=== PATIENT | male | born 1995 | race Asian ===

== ENCOUNTER 2022-12-05 13:29 | Inpatient (IN) | payer OTHER ==
[2022-12-05] MEDS: Sodium Chloride 0.9% 10 ML Syringe FLUSH PRN (14:43)
[2022-12-05 14:49] LABS: PROTHROMBIN TIME 10.1 SEC (9.0-12.0); PTT,PARTIAL THROMBOPLSTIN TIME 22.3 SEC (22.0-34.0)
[2022-12-05 14:52] LABS: A/G RATIO 1.3; ALANINE AMINOTRANSFERASE,ALT 306 U/L (16-63); ALBUMIN 4.5 g/dL (3.4-5.0); ALKALINE PHOSPHATASE 95 U/L (46-116); AMYLASE 81 U/L (25-115); ANION GAP 21.1 mEq/L (7-13); ASPARTATE AMNIOTRANSFERASE,AST 296 U/L (15-37); BILIRUBIN TOTAL 1.7 mg/dL (0.2-1.0); BLOOD UREA NITROGEN,BUN 9 mg/dL (7-18); BUN/CREATININE RATIO 9.5 (No establ ref range); CALCIUM 9.7 mg/dL (8.5-10.1); CARBON DIOXIDE,CO2 22 mmol/L (21-32); CHLORIDE,CL 101 mmol/L (98-107); CREATININE 0.95 mg/dL (0.70-1.30); ESTIMATED GFR 112 mL/min (>=60); GLUCOSE RANDOM 134 mg/dL (70-99); LIPASE 290 U/L (73-393); MAGNESIUM 1.6 mg/dL (1.8-2.4); POTASSIUM,K 4.1 mmol/L (3.5-5.1); SODIUM,NA 140 mmol/L (136-145)
[2022-12-05 14:53] LABS: C-REACTIVE PROTEIN < 0.2 mg/dL (0.0-0.9); ETHANOL BLOOD MEDICAL < 3 mg/dL (0)
[2022-12-05 14:54] LABS: BASOPHILS PERCENT AUTO 0.7 % (0.0-1.0); HEMATOCRIT 48.3 % (40.0-54.0); HEMOGLOBIN 16.1 g/dL (14.0-18.0); LYMPHOCYTES PERCENT AUTO 2.8 % (20.5-50.1); MEAN CORPUSCULAR HEMOGLOBIN 35.2 pg (27.0-34.0); MEAN CORPUSCULAR HGB CONC 33.3 g/dL (33.0-35.0); MEAN CORPUSCULAR VOLUME 105.5 fL (80-100); MONOCYTES PERCENT AUTO 5.8 % (2-8); NEUTROPHILS PERCENT AUTO 90.7 % (42.2-75.2); PLATELET COUNT,PLT 75 10^3/uL (150-450); RED BLOOD CELL COUNT 4.58 10^6/uL (4.6-6.2); WHITE BLOOD CELL COUNT,WBC 7.6 10^3/uL (5.0-10.0)
[2022-12-05 14:57] LABS: APPEARANCE,URINE CLOUDY (CLEAR); BILIRUBIN,URINE SMALL (NEGATIVE); COLOR,URINE AMBER (YELLOW); GLUCOSE,URINE NEGATIVE (NEGATIVE); KETONES,URINE 15 (NEGATIVE); LEUKOCYTE ESTERASE,URINE NEGATIVE (NEGATIVE); NITRITE,URINE POSITIVE (NEGATIVE); OCCULT BLOOD,URINE TRACE-INTACT (NEGATIVE); PROTEIN,URINE >=300 (NEGATIVE)
[2022-12-05 14:59] LABS: LACTIC ACID 5.4 mmol/L (0.4-2.0)
[2022-12-05 15:07] LABS: AMPHETAMINES,URINE NEGATIVE (NEGATIVE); BARBITURATES,URINE NEGATIVE (NEGATIVE); BENZODIAZEPINE,URINE NEGATIVE (NEGATIVE); MDMA (ECSTASY), URINE NEGATIVE (NEGATIVE); METHADONE,URINE NEGATIVE (NEGATIVE); METHAMPHETAMINES,URINE NEGATIVE (NEGATIVE); OPIATES,URINE NEGATIVE (NEGATIVE); OXYCODONE,URINE NEGATIVE (NEGATIVE); PHENCYCLIDINE,URINE NEGATIVE (NEGATIVE); TCA,URINE NEGATIVE (NEGATIVE)
[2022-12-05] MEDS ORDERED: Ondansetron 4 MG/2 ML SDV IVPUSH ONE (15:16)
[2022-12-05] MEDS ORDERED: Sodium Chloride 0.9% 1,000 ML IV ONE (15:16)
[2022-12-05] MEDS ORDERED: Lactulose Soln 10 GM/15 ML 30 ML UD Cup PO ONE (15:18)
[2022-12-05] MEDS ORDERED: Iopamidol 612 MG/ML 100 ML Bottle IVPUSH ONE (15:19)
[2022-12-05] MEDS ORDERED: LORazepam 2 MG/ML SDV IVPUSH ONE (15:28)
[2022-12-05 16:03] LABS: AMORPHOUS SEDIMENT,URINE FEW /HPF (NOT SEEN); BACTERIA,URINE OCCASIONAL /HPF (0-FEW/HPF); EPITHELIAL CELLS,URINE NOT SEEN /HPF (NOT SEEN); MUCUS,URINE MODERATE /LPF (NOT SEEN); WBC,URINE 0-5 /HPF (0-5/HPF)
[2022-12-05] MEDS ORDERED: MVI, Adult with Vitamin K 10 ML, Folic Acid 1 MG, Thiamine 100 MG in Lactated Ringers 1... IV ONE ×4 (16:43)
[2022-12-05] MEDS ORDERED: Nitrofurantoin Monohydrate/Macrocrystalline 100 MG Cap PO ONE (16:59)
[2022-12-05] MEDS ORDERED: Ibuprofen 400 MG Tab PO PRN (17:24)
[2022-12-05] MEDS ORDERED: Ketorolac 30 MG/ML SDV IVPUSH PRN (17:24)
[2022-12-05] MEDS ORDERED: Ondansetron 4 MG/2 ML SDV IVPUSH PRN (17:25)
[2022-12-05] MEDS ORDERED: Magnesium Hydroxide 400 MG/5 ML Susp 30 ML Cup PO PRN (17:25)
[2022-12-05] MEDS ORDERED: HYDROmorphone 0.5 MG/0.5 ML Syringe IVPUSH PRN (17:25)
[2022-12-05] MEDS ORDERED: Albuterol/Ipratropium 3.0-0.5 MG/3 ML Neb Soln NEB PRN (17:25)
[2022-12-05] MEDS ORDERED: Thiamine 200 MG/2 ML MDV IVPUSH ONE (17:25)
[2022-12-05] MEDS ORDERED: cloNIDine 0.1 MG Tab PO PRN (17:25)
[2022-12-05] MEDS ORDERED: Polyethylene Glycol 3350 Powder 17 GM Packet PO PRN (17:25)
[2022-12-05] MEDS ORDERED: LORazepam 0.5 MG Tab PO PRN (17:25)
[2022-12-05] MEDS ORDERED: Ziprasidone Mesylate 20 MG Vial IM PRN (17:28)
[2022-12-05] MEDS ORDERED: Magnesium Sulfate/Water 2 GM in Premix Bag 1 BAG IV ONE (17:29)
[2022-12-05] MEDS ORDERED: Sodium Chloride 0.9% 1,000 ML IV SCH (17:30)
[2022-12-05] MEDS: Nicotine 21 MG/24 Hr Patch TRDERM SCH (18:38)
[2022-12-05] MEDS: QUEtiapine 100 MG Tab PO SCH (20:33)
[2022-12-05] MEDS: LORazepam 2 MG/ML SDV IV PRN (23:50)
[2022-12-06] MEDS: LORazepam 2 MG/ML SDV IV PRN ×4 (01:56→15:33)
[2022-12-06] MEDS: Pantoprazole 40 MG Tab.CR PO SCH (06:11)
[2022-12-06 06:41] LABS: HEMOGLOBIN 14.8 g/dL (14.0-18.0); MEAN CORPUSCULAR HEMOGLOBIN 35.5 pg (27.0-34.0); MEAN CORPUSCULAR HGB CONC 32.9 g/dL (33.0-35.0); MEAN CORPUSCULAR VOLUME 107.9 fL (80-100); RED BLOOD CELL COUNT 4.17 10^6/uL (4.6-6.2); WHITE BLOOD CELL COUNT,WBC 4.2 10^3/uL (5.0-10.0)
[2022-12-06 06:54] LABS: A/G RATIO 1.1; ALBUMIN 3.4 g/dL (3.4-5.0); ANION GAP 13.1 mEq/L (7-13); BILIRUBIN TOTAL 1.9 mg/dL (0.2-1.0); BUN/CREATININE RATIO 9.6 (No establ ref range); CALCIUM 8.5 mg/dL (8.5-10.1); CREATININE 0.73 mg/dL (0.70-1.30); EST CRCL DRUG DOSING (CG) 131.05 mL/min; MAGNESIUM 1.9 mg/dL (1.8-2.4); POTASSIUM,K 3.1 mmol/L (3.5-5.1); PROTEIN TOTAL,TP 6.6 g/dL (6.4-8.2)
[2022-12-06] MEDS: Multivitamin Tab PO SCH (08:42)
[2022-12-06] MEDS: Thiamine 100 MG Tab PO SCH (08:42)
[2022-12-06] MEDS: Folic Acid 1 MG Tab PO SCH (08:43)
[2022-12-06] MEDS: Nicotine 21 MG/24 Hr Patch TRDERM SCH (08:52)
[2022-12-06] MEDS: Sodium Chloride 0.9% 10 ML Syringe FLUSH PRN (15:33)
[2022-12-06] MEDS ORDERED: Potassium Chloride 10 MEQ Tab.ER PO ONE (17:47)
[2022-12-06] MEDS: QUEtiapine 100 MG Tab PO SCH (20:54)
[2022-12-07] MEDS: Pantoprazole 40 MG Tab.CR PO SCH (05:22)
[2022-12-07 06:14] LABS: HEMATOCRIT 43.2 % (40.0-54.0); MEAN CORPUSCULAR HEMOGLOBIN 36.4 pg (27.0-34.0); MEAN CORPUSCULAR HGB CONC 34.7 g/dL (33.0-35.0); MEAN CORPUSCULAR VOLUME 104.9 fL (80-100); RED BLOOD CELL COUNT 4.12 10^6/uL (4.6-6.2); WHITE BLOOD CELL COUNT,WBC 4.5 10^3/uL (5.0-10.0)
[2022-12-07 06:33] LABS: A/G RATIO 1.1; ALBUMIN 3.5 g/dL (3.4-5.0); ANION GAP 15.2 mEq/L (7-13); BILIRUBIN TOTAL 1.6 mg/dL (0.2-1.0); BUN/CREATININE RATIO 16.7 (No establ ref range); CALCIUM 9.1 mg/dL (8.5-10.1); CREATININE 0.66 mg/dL (0.70-1.30); EST CRCL DRUG DOSING (CG) 144.95 mL/min; MAGNESIUM 1.9 mg/dL (1.8-2.4); POTASSIUM,K 3.2 mmol/L (3.5-5.1); PROTEIN TOTAL,TP 6.8 g/dL (6.4-8.2)
[2022-12-07] MEDS: Nicotine 21 MG/24 Hr Patch TRDERM SCH (08:11)
[2022-12-07] MEDS: Folic Acid 1 MG Tab PO SCH (08:12)
[2022-12-07] MEDS: Multivitamin Tab PO SCH (08:12)
[2022-12-07] MEDS: Thiamine 100 MG Tab PO SCH (08:13)
== END 2022-12-07 10:35 | disposition home or self-care (01) | DRG 896 ==
LOC: DL.ED 13:29 → DL.MS 16:47 → DL.ED 17:05
PROVIDERS: ADMIT Internal Medicine; ATTEND Internal Medicine
DX: F10.239 Alcohol dependence with withdrawal, unspecified (principal); K85.20 Alcohol induced acute pancreatitis without necrosis or infection; E87.20 Acidosis, unspecified; F17.210 Nicotine dependence, cigarettes, uncomplicated; F41.9 Anxiety disorder, unspecified; E87.6 Hypokalemia; K70.10 Alcoholic hepatitis without ascites; K29.20 Alcoholic gastritis without bleeding; K76.82 Hepatic encephalopathy; R73.9 Hyperglycemia, unspecified; E86.0 Dehydration; E83.42 Hypomagnesemia; Z79.899 Other long term (current) drug therapy
CPT/HCPCS: 36415; 70450; 71045; 72125; 74177; 80053; 80305-QW; 80307; 81001; 82140; 82150; 83605; 83690; 83735; 84145; 84484; 85025; 85027; 85610; 85730; 86140; 87086; 93005; 93010; 96361; 96374; 96375; 99222; 99232; 99238; 99285; 99285-25; A9270-GY; J2060; J2405; J3411; J3475; J3490; J7030; J7120; Q9967

== ENCOUNTER 2023-01-31 10:04 | Inpatient (IN) | payer OTHER ==
[2023-01-31] MEDS ORDERED: Sodium Chloride 0.9% 1,000 ML IV ONE (10:30)
[2023-01-31] MEDS ORDERED: Ondansetron 4 MG/2 ML SDV IVPUSH ONE (10:30)
[2023-01-31 10:37] LABS: BASOPHILS PERCENT AUTO 0.2 % (0.0-1.0); EOSINOPHILS PERCENT AUTO 0.5 % (1.0-3.0); HEMATOCRIT 53.1 % (40.0-54.0); HEMOGLOBIN 18.1 g/dL (14.0-18.0); LYMPHOCYTES PERCENT AUTO 10.5 % (20.5-50.1); MEAN CORPUSCULAR HEMOGLOBIN 35.1 pg (27.0-34.0); MEAN CORPUSCULAR HGB CONC 34.1 g/dL (33.0-35.0); MEAN CORPUSCULAR VOLUME 102.9 fL (80-100); MONOCYTES PERCENT AUTO 7.2 % (2-8); NEUTROPHILS PERCENT AUTO 81.6 % (42.2-75.2); PLATELET COUNT,PLT 187 10^3/uL (150-450); RED BLOOD CELL COUNT 5.16 10^6/uL (4.6-6.2); WHITE BLOOD CELL COUNT,WBC 11.1 10^3/uL (5.0-10.0)
[2023-01-31 10:53] LABS: LACTIC ACID 5.8 mmol/L (0.4-2.0)
[2023-01-31] MEDS ORDERED: HYDROmorphone 1 MG/ML Syringe IVPUSH ONE (10:53)
[2023-01-31 10:54] LABS: A/G RATIO 0.85; ALANINE AMINOTRANSFERASE,ALT 73 U/L (16-63); ALBUMIN 3.3 g/dL (3.4-5.0); ALKALINE PHOSPHATASE 136 U/L (46-116); ANION GAP 21.5 mEq/L (7-13); ASPARTATE AMNIOTRANSFERASE,AST 81 U/L (15-37); BLOOD UREA NITROGEN,BUN 8 mg/dL (7-18); BUN/CREATININE RATIO 7.8 (No establ ref range); CALCIUM 8.2 mg/dL (8.5-10.1); CARBON DIOXIDE,CO2 24 mmol/L (21-32); CHLORIDE,CL 103 mmol/L (98-107); CREATININE 1.02 mg/dL (0.70-1.30); EST CRCL DRUG DOSING (CG) 93.79 mL/min; ESTIMATED GFR 103 mL/min (>=60); ETHANOL BLOOD MEDICAL 106 mg/dL (0); GLUCOSE RANDOM 161 mg/dL (70-99); MAGNESIUM 1.5 mg/dL (1.8-2.4); POTASSIUM,K 3.5 mmol/L (3.5-5.1); PROTEIN TOTAL,TP 7.2 g/dL (6.4-8.2); SODIUM,NA 145 mmol/L (136-145)
[2023-01-31 10:55] LABS: C-REACTIVE PROTEIN < 0.2 mg/dL (0.0-0.9); LIPASE > 2250 U/L (73-393)
[2023-01-31] MEDS ORDERED: Magnesium Sulfate/Water 2 GM in Premix Bag 1 BAG IV ONE (11:14)
[2023-01-31] MEDS ORDERED: Ibuprofen 600 MG Tab PO PRN (12:26)
[2023-01-31] MEDS ORDERED: Albuterol/Ipratropium 3.0-0.5 MG/3 ML Neb Soln NEB PRN (12:26)
[2023-01-31] MEDS ORDERED: HYDROmorphone 0.5 MG/0.5 ML Syringe IVPUSH PRN (12:26)
[2023-01-31] MEDS ORDERED: cloNIDine 0.1 MG Tab PO PRN (12:30)
[2023-01-31] MEDS ORDERED: Haloperidol Lactate 5 MG/ML SDV IM PRN (12:30)
[2023-01-31] MEDS ORDERED: LORazepam 0.5 MG Tab PO PRN (12:30)
[2023-01-31] MEDS ORDERED: MVI, Adult with Vitamin K 10 ML, Folic Acid 1 MG, Thiamine 100 MG in Lactated Ringers 1... IV ONE ×8 (12:31→13:00)
[2023-01-31] MEDS ORDERED: hydrALAZINE 20 MG/ML SDV IVPUSH PRN (12:37)
[2023-01-31 12:49] LABS: BASOPHILS PERCENT AUTO 0.2 % (0.0-1.0); EOSINOPHILS PERCENT AUTO 0.1 % (1.0-3.0); HEMATOCRIT 51.3 % (40.0-54.0); HEMOGLOBIN 17.1 g/dL (14.0-18.0); LYMPHOCYTES PERCENT AUTO 3.4 % (20.5-50.1); MEAN CORPUSCULAR HEMOGLOBIN 34.4 pg (27.0-34.0); MEAN CORPUSCULAR HGB CONC 33.3 g/dL (33.0-35.0); MEAN CORPUSCULAR VOLUME 103.2 fL (80-100); MONOCYTES PERCENT AUTO 6.7 % (2-8); NEUTROPHILS PERCENT AUTO 89.6 % (42.2-75.2); PLATELET COUNT,PLT 151 10^3/uL (150-450); RED BLOOD CELL COUNT 4.97 10^6/uL (4.6-6.2); WHITE BLOOD CELL COUNT,WBC 13.1 10^3/uL (5.0-10.0)
[2023-01-31] MEDS ORDERED: Pantoprazole 40 MG in Sodium Chloride 0.9% 100 ML IV ONE (13:00)
[2023-01-31] MEDS: oxyCODONE 5 MG Tab PO PRN ×3 (13:53→21:08)
[2023-01-31] MEDS ORDERED: Ondansetron 4 MG/2 ML SDV IVPUSH PRN (14:30)
[2023-01-31] MEDS: HYDROmorphone 0.5 MG/0.5 ML Syringe IVPUSH PRN ×4 (15:26→21:35)
[2023-01-31 16:27] LABS: APPEARANCE,URINE CLEAR (CLEAR); BILIRUBIN,URINE NEGATIVE (NEGATIVE); COLOR,URINE YELLOW (YELLOW); GLUCOSE,URINE NEGATIVE (NEGATIVE); KETONES,URINE TRACE (NEGATIVE); LEUKOCYTE ESTERASE,URINE NEGATIVE (NEGATIVE); NITRITE,URINE NEGATIVE (NEGATIVE); OCCULT BLOOD,URINE MODERATE (NEGATIVE); PH,URINE 6.5 (5.0-9.0); PROTEIN,URINE >=300 (NEGATIVE); UROBILINOGEN,URINE 0.2 mg/dL (0.2-1.0)
[2023-01-31 16:32] LABS: AMPHETAMINES,URINE NEGATIVE (NEGATIVE); BARBITURATES,URINE NEGATIVE (NEGATIVE); BENZODIAZEPINE,URINE NEGATIVE (NEGATIVE); MDMA (ECSTASY), URINE NEGATIVE (NEGATIVE); METHADONE,URINE NEGATIVE (NEGATIVE); METHAMPHETAMINES,URINE NEGATIVE (NEGATIVE); OPIATES,URINE POSITIVE (NEGATIVE); OXYCODONE,URINE NEGATIVE (NEGATIVE); PHENCYCLIDINE,URINE NEGATIVE (NEGATIVE); TCA,URINE NEGATIVE (NEGATIVE)
[2023-01-31 16:46] LABS: BACTERIA,URINE FEW /HPF (0-FEW/HPF); EPITHELIAL CELLS,URINE FEW /HPF (NOT SEEN); MUCUS,URINE MODERATE /LPF (NOT SEEN); WBC,URINE 0-5 /HPF (0-5/HPF)
[2023-01-31 16:49] LABS: HYALINE CASTS,URINE FEW
[2023-01-31] MEDS ORDERED: Thiamine 200 MG/2 ML MDV IVPUSH ONE (17:30)
[2023-01-31] MEDS: Thiamine 200 MG/2 ML MDV IVPUSH ONE ×2 (17:33→19:55)
[2023-01-31] MEDS: Metoprolol Tartrate 5 MG/5 ML SDV IVPUSH PRN ×2 (17:57→22:03)
[2023-01-31] MEDS ORDERED: LORazepam 2 MG/ML SDV IVPUSH ONE (19:56)
[2023-01-31] MEDS ORDERED: Flumazenil 0.1 MG/ML 5 ML MDV IVPUSH PRN (19:56)
[2023-01-31] MEDS: Topiramate 25 MG Tab PO SCH (21:08)
[2023-01-31] MEDS: QUEtiapine 25 MG Tab PO SCH (21:08)
[2023-02-01] MEDS: Metoprolol Tartrate 5 MG/5 ML SDV IVPUSH PRN ×3 (02:03→23:29)
[2023-02-01] MEDS: HYDROmorphone 0.5 MG/0.5 ML Syringe IVPUSH PRN ×5 (03:19→23:09)
[2023-02-01] MEDS ORDERED: Pantoprazole 40 MG Vial IVPUSH SCH (06:00)
[2023-02-01 06:33] LABS: BASOPHILS PERCENT AUTO 0.1 % (0.0-1.0); EOSINOPHILS PERCENT AUTO 0.2 % (1.0-3.0); HEMATOCRIT 51.8 % (40.0-54.0); HEMOGLOBIN 17.1 g/dL (14.0-18.0); LYMPHOCYTES PERCENT AUTO 3.8 % (20.5-50.1); MEAN CORPUSCULAR HEMOGLOBIN 35.3 pg (27.0-34.0); MONOCYTES PERCENT AUTO 7.1 % (2-8); NEUTROPHILS PERCENT AUTO 88.8 % (42.2-75.2); PLATELET COUNT,PLT 108 10^3/uL (150-450); RED BLOOD CELL COUNT 4.84 10^6/uL (4.6-6.2); WHITE BLOOD CELL COUNT,WBC 13.3 10^3/uL (5.0-10.0)
[2023-02-01 06:54] LABS: ALANINE AMINOTRANSFERASE,ALT 53 U/L (16-63); ALBUMIN 2.7 g/dL (3.4-5.0); ALKALINE PHOSPHATASE 104 U/L (46-116); ANION GAP 19.9 mEq/L (7-13); ASPARTATE AMNIOTRANSFERASE,AST 179 U/L (15-37); BILIRUBIN TOTAL 2.1 mg/dL (0.2-1.0); BLOOD UREA NITROGEN,BUN 20 mg/dL (7-18); BUN/CREATININE RATIO 7.2 (No establ ref range); CALCIUM 8.1 mg/dL (8.5-10.1); CARBON DIOXIDE,CO2 22 mmol/L (21-32); CHLORIDE,CL 105 mmol/L (98-107); CREATININE 2.77 mg/dL (0.70-1.30); EST CRCL DRUG DOSING (CG) 34.54 mL/min; GLUCOSE RANDOM 148 mg/dL (70-99); MAGNESIUM 1.7 mg/dL (1.8-2.4); POTASSIUM,K 4.9 mmol/L (3.5-5.1); PROTEIN TOTAL,TP 6.6 g/dL (6.4-8.2); SODIUM,NA 142 mmol/L (136-145)
[2023-02-01 07:11] LABS: A/G RATIO 0.69; ESTIMATED GFR 31 mL/min (>=60); LIPASE > 2250 U/L (73-393)
[2023-02-01] MEDS ORDERED: Magnesium Sulfate/Water 2 GM in Premix Bag 1 BAG IV ONE (07:54)
[2023-02-01] MEDS: Topiramate 25 MG Tab PO SCH ×2 (08:23→21:10)
[2023-02-01] MEDS ORDERED: Pneumococcal Polyvalent-23 Vaccine 0.5 ML SDV IM ONE (09:00)
[2023-02-01] MEDS: Sodium Chloride 0.9% 1,000 ML IV SCH ×2 (09:09→18:05)
[2023-02-01] MEDS: LORazepam 2 MG/ML SDV IV PRN ×3 (12:50→17:50)
[2023-02-01] MEDS ORDERED: Multivitamin Tab PO SCH (21:00)
[2023-02-01] MEDS ORDERED: Folic Acid 1 MG Tab PO SCH (21:00)
[2023-02-01] MEDS ORDERED: Thiamine 100 MG Tab PO SCH (21:00)
[2023-02-01] MEDS: QUEtiapine 25 MG Tab PO SCH (21:09)
[2023-02-01 21:50] LABS: A/G RATIO 0.68; ALBUMIN 2.5 g/dL (3.4-5.0); ANION GAP 17.3 mEq/L (7-13); BILIRUBIN TOTAL 2.3 mg/dL (0.2-1.0); BUN/CREATININE RATIO 9.3 (No establ ref range); CALCIUM 7.4 mg/dL (8.5-10.1); CREATININE 4.19 mg/dL (0.70-1.30); EST CRCL DRUG DOSING (CG) 22.83 mL/min; POTASSIUM,K 5.3 mmol/L (3.5-5.1); PROTEIN TOTAL,TP 6.2 g/dL (6.4-8.2)
[2023-02-01] MEDS ORDERED: Sodium Chloride 0.9% 1,000 ML IV SCH (22:36)
[2023-02-01] MEDS ORDERED: Lactated Ringers 1,000 ML IV SCH (22:45)
[2023-02-01] MEDS: Lactated Ringers 1,000 ML IV SCH ×2 (23:15→23:59)
[2023-02-02] MEDS: LORazepam 2 MG/ML SDV IV PRN (01:23)
[2023-02-02] MEDS: Lactated Ringers 1,000 ML IV SCH (01:58)
== END 2023-02-02 02:50 | disposition left against medical advice (07) | DRG 391 ==
LOC: DL.ED 10:04 → DL.MS 11:53
PROVIDERS: ADMIT Internal Medicine; ATTEND Internal Medicine
DX: K29.20 Alcoholic gastritis without bleeding (principal); K85.20 Alcohol induced acute pancreatitis without necrosis or infection; E87.20 Acidosis, unspecified; F10.288 Alcohol dependence with other alcohol-induced disorder; N17.9 Acute kidney failure, unspecified; K70.0 Alcoholic fatty liver; E87.5 Hyperkalemia; R73.9 Hyperglycemia, unspecified; E83.42 Hypomagnesemia; K70.11 Alcoholic hepatitis with ascites; E88.09 Other disorders of plasma-protein metabolism, not elsewhere classified
CPT/HCPCS: 36415; 76705; 76770; 80053; 80305-QW; 80307; 81001; 82947; 83605; 83690; 83735; 85025; 86140; 87040; 96361; 96374; 96375; 99285; 99285-25; A9270-GY; C9113; J0360; J1170; J2060; J2405; J3411; J3475; J3490; J7030; J7120

== ENCOUNTER 2023-02-02 06:06 | Emergency (ER) | payer MEDICAID, OTHER ==
[2023-02-02] MEDS ORDERED: Sodium Chloride 0.9% 1,000 ML IV ONE ×5 (07:25→19:28)
[2023-02-02] MEDS: Sodium Chloride 0.9% 10 ML Syringe FLUSH PRN ×3 (07:45→10:31)
[2023-02-02 07:59] LABS: HEMATOCRIT 43.5 % (40.0-54.0); HEMOGLOBIN 14.7 g/dL (14.0-18.0); MEAN CORPUSCULAR HEMOGLOBIN 35.9 pg (27.0-34.0); MEAN CORPUSCULAR HGB CONC 33.8 g/dL (33.0-35.0); MEAN CORPUSCULAR VOLUME 106.4 fL (80-100); PLATELET COUNT,PLT 104 10^3/uL (150-450); RED BLOOD CELL COUNT 4.09 10^6/uL (4.6-6.2); WHITE BLOOD CELL COUNT,WBC 8.1 10^3/uL (5.0-10.0)
[2023-02-02 08:03] LABS: BASOPHILS PERCENT AUTO 0.6 % (0.0-1.0); EOSINOPHILS PERCENT AUTO 0.5 % (1.0-3.0); LYMPHOCYTES PERCENT AUTO 6.6 % (20.5-50.1); NEUTROPHILS PERCENT AUTO 88.3 % (42.2-75.2)
[2023-02-02 08:14] LABS: BAND PERCENT MAN 25 %; LYMPHOCYTES PERCENT MAN 9 % (20-50); MONOCYTES PERCENT MAN 3 % (2-8); SEG NEUTROPHILS PERCENT MAN 63 % (42-75)
[2023-02-02 08:44] LABS: INR 1.1 (0.9-1.2); PROTHROMBIN TIME 11.6 SEC (9.0-12.0); PTT,PARTIAL THROMBOPLSTIN TIME 28.8 SEC (22.0-34.0)
[2023-02-02 08:53] LABS: LACTIC ACID 1.8 mmol/L (0.4-2.0)
[2023-02-02 08:57] LABS: ALANINE AMINOTRANSFERASE,ALT 44 U/L (16-63); ALBUMIN 2.2 g/dL (3.4-5.0); ALKALINE PHOSPHATASE 67 U/L (46-116); AMYLASE 486 U/L (25-115); ASPARTATE AMNIOTRANSFERASE,AST 174 U/L (15-37); BILIRUBIN TOTAL 2.4 mg/dL (0.2-1.0); BLOOD UREA NITROGEN,BUN 44 mg/dL (7-18); BUN/CREATININE RATIO 11.4 (No establ ref range); CALCIUM 7.1 mg/dL (8.5-10.1); CREATININE 3.87 mg/dL (0.70-1.30); EST CRCL DRUG DOSING (CG) 24.72 mL/min; GLUCOSE RANDOM 139 mg/dL (70-99); MAGNESIUM 1.9 mg/dL (1.8-2.4); POTASSIUM,K 3.9 mmol/L (3.5-5.1); PROTEIN TOTAL,TP 5.6 g/dL (6.4-8.2); SODIUM,NA 140 mmol/L (136-145)
[2023-02-02 09:05] LABS: ANION GAP 17.9 mEq/L (7-13); CARBON DIOXIDE,CO2 21 mmol/L (21-32); CHLORIDE,CL 105 mmol/L (98-107)
[2023-02-02 09:16] LABS: A/G RATIO 0.65; ACETAMINOPHEN 0 ug/mL (10-30 (Therapeutic)); ESTIMATED GFR 21 mL/min (>=60); ETHANOL BLOOD MEDICAL < 3 mg/dL (0); LIPASE > 2250 U/L (73-393)
[2023-02-02 09:17] LABS: C-REACTIVE PROTEIN > 36.0 mg/dL (0.0-0.9)
[2023-02-02 09:21] LABS: APPEARANCE,URINE CLEAR (CLEAR); BILIRUBIN,URINE NEGATIVE (NEGATIVE); COLOR,URINE DARK YELLOW (YELLOW); GLUCOSE,URINE NEGATIVE (NEGATIVE); KETONES,URINE NEGATIVE (NEGATIVE); LEUKOCYTE ESTERASE,URINE NEGATIVE (NEGATIVE); NITRITE,URINE NEGATIVE (NEGATIVE); OCCULT BLOOD,URINE LARGE (NEGATIVE); PROTEIN,URINE 100 (NEGATIVE)
[2023-02-02 09:28] LABS: AMPHETAMINES,URINE NEGATIVE (NEGATIVE); BARBITURATES,URINE NEGATIVE (NEGATIVE); BENZODIAZEPINE,URINE POSITIVE (NEGATIVE); MDMA (ECSTASY), URINE NEGATIVE (NEGATIVE); METHADONE,URINE NEGATIVE (NEGATIVE); METHAMPHETAMINES,URINE NEGATIVE (NEGATIVE); OPIATES,URINE NEGATIVE (NEGATIVE); OXYCODONE,URINE NEGATIVE (NEGATIVE); PHENCYCLIDINE,URINE NEGATIVE (NEGATIVE); TCA,URINE NEGATIVE (NEGATIVE)
[2023-02-02] MEDS ORDERED: Ondansetron 4 MG/2 ML SDV IVPUSH ONE (09:29)
[2023-02-02 09:34] LABS: RBC,URINE 0-5 /HPF (0-5); WBC,URINE 0-5 /HPF (0-5/HPF)
[2023-02-02 09:35] LABS: BACTERIA,URINE FEW /HPF (0-FEW/HPF); EPITHELIAL CELLS,URINE FEW /HPF (NOT SEEN)
[2023-02-02] MEDS ORDERED: HYDROmorphone 1 MG/ML Syringe IVPUSH ONE (11:33)
[2023-02-02] MEDS ORDERED: Sodium Chloride 0.9% 1,000 ML IV SCH (15:45)
[2023-02-02] MEDS ORDERED: Flumazenil 0.1 MG/ML 5 ML MDV IVPUSH PRN (17:37)
[2023-02-02 20:16] LABS: HEMATOCRIT 36.5 % (40.0-54.0); HEMOGLOBIN 11.9 g/dL (14.0-18.0); MEAN CORPUSCULAR HEMOGLOBIN 34.9 pg (27.0-34.0); MEAN CORPUSCULAR HGB CONC 32.6 g/dL (33.0-35.0); RED BLOOD CELL COUNT 3.41 10^6/uL (4.6-6.2); WHITE BLOOD CELL COUNT,WBC 9.2 10^3/uL (5.0-10.0)
[2023-02-02 20:33] LABS: LACTIC ACID 1.5 mmol/L (0.4-2.0)
[2023-02-02 20:37] LABS: ALBUMIN 2.1 g/dL (3.4-5.0); ANION GAP 18.3 mEq/L (7-13); BILIRUBIN TOTAL 1.9 mg/dL (0.2-1.0); BUN/CREATININE RATIO 14.5 (No establ ref range); CALCIUM 6.9 mg/dL (8.5-10.1); CREATININE 2.75 mg/dL (0.70-1.30); EST CRCL DRUG DOSING (CG) 34.79 mL/min; POTASSIUM,K 3.3 mmol/L (3.5-5.1); PROTEIN TOTAL,TP 5.6 g/dL (6.4-8.2)
[2023-02-02 20:45] LABS: A/G RATIO 0.6
[2023-02-02 20:55] LABS: O2 DELIVERY DEVICE ROOM AIR
[2023-02-02 20:56] LABS: BASE EXCESS ARTERIAL -7 mmol/L ((-2)-(+3)); BICARBONATE,ARTERIAL 17.2 mmol/L (22-26); O2 SATURATION ARTERIAL 88 % (95-100); PCO2 ARTERIAL 31 mmHg (35-45); PH,ARTERIAL 7.37 (7.35-7.45); PO2 ARTERIAL 60 mmHg (70-100)
[2023-02-02 20:57] LABS: ALLEN TEST POSITIVE
[2023-02-02] MEDS ORDERED: Lactated Ringers 1,000 ML IV ONE (21:04)
[2023-02-02] MEDS ORDERED: Potassium Chloride 10 MEQ Tab.ER PO ONE (21:07)
[2023-02-02] MEDS ORDERED: Potassium Chloride 10 MEQ in Premix Bag 1 BAG IV ONE (21:07)
[2023-02-02] MEDS ORDERED: Lactated Ringers 1,000 ML IV SCH (21:15)
[2023-02-02] MEDS: HYDROmorphone 1 MG/ML Syringe IVPUSH PRN (21:45)
[2023-02-02] MEDS: LORazepam 2 MG/ML SDV IVPUSH PRN (21:45)
[2023-02-02] MEDS ORDERED: LORazepam 2 MG/ML SDV IVPUSH ONE (23:19)
[2023-02-03] MEDS: LORazepam 2 MG/ML SDV IVPUSH PRN (02:41)
[2023-02-03] MEDS: HYDROmorphone 1 MG/ML Syringe IVPUSH PRN (02:42)
== END 2023-02-03 06:40 | disposition home or self-care (01) ==
LOC: DL.ED 06:06
DX: K85.22 Alcohol induced acute pancreatitis with infected necrosis (principal); F10.131 Alcohol abuse with withdrawal delirium; R74.02 Elevation of levels of lactic acid dehydrogenase [LDH]; I10 Essential (primary) hypertension; F17.210 Nicotine dependence, cigarettes, uncomplicated
CPT/HCPCS: 36415; 36600; 80053; 80143; 80179; 80305-QW; 80307; 81001; 82140; 82150; 82803; 83605; 83690; 83735; 84145; 85025; 85027; 85610; 85730; 86140; 99285; A9270-GY; J1170; J2060; J2405; J3480; J3490; J7030; J7120